=== PATIENT | female | born 1940 | race Caucasian/White ===

== ENCOUNTER → 2017-07-21 | Day surgery (SDC) | payer MEDICARE, OTHER ==
--- NOTE | 2017-07-15 13:57 | Diagnostic Imaging Report ---
PROCEDURE:CHEST 2 VIEWS TECHNIQUE:PA and lateral chest INDICATION:Preoperative evaluation for foot surgery COMPARISON:None. FINDINGS: The lungs are clear and symmetrically inflated. No pleural effusions. Normal heart size, mediastinal contour and pulmonary vasculature. Intact skeleton. Breast augmentation. CONCLUSION: No acute abnormality. Dictated by: Cyrus Carlos M.D. on 07/15/2017 at 14:05 Electronically approved by: Cyrus Carlos M.D. on 07/15/2017 at 14:05
[~2017-07-21] MED LIST: ABILIFY2 MG PO; ASPIR 8181 MG PO; BACITRACIN ZINC 15 GM OINT ONE; BUPIVACAINE HCL 0.5% INJ 30 ML VIAL INJ ONE; CEFAZOLIN SOD 2 GM/D5W 50ML 50 ML IV ONE; CRESTOR10 MG PO; DEXAMETHASONE SOD PHOS INJ 4 MG/ML VIAL ONE; FENTANYL CITRATE/PF 100MCG/2 ML INJ ONE; GLYCOPYRROLATE INJ 1MG/ 5 ML SYR ONE; LIDOCAINE HCL 2% LOCAL INJ 5 ML SDV VIAL INJ ONE; METHYLPHENIDATE10 MG PO; METOPROLOL TART25 MG PO; MIDAZOLAM HCL 2 MG/2 ML VIAL ONE; MUPIROCIN 2% OINT 22 GM TUBE ONE; NEOSTIGMINE 5 MG/5ML SYR ONE; ONDANSETRON HCL INJ 2 MG/ML VIAL ONE; PHENYLEPHRINE HCL 1% 10 MG/ML VIAL ONE; PROPOFOL IV EMULSION 10 MG/ML 20 ML VIAL ONE; ROCURONIUM BROMIDE 10 MG/ML 5ML VIAL ONE; SEVOFLURANE INHAL SOLN 250 ML PEN BTL ONE; SYNTHROID50 MCG PO; VENLAFAXINE HCL75 M1 PO; VIMPAT100 MG PO
--- NOTE | 2017-08-03 08:10 | Operative Report ---
DATE OF PROCEDURE: July 21, 2017 QA INTERN: None. POSTOPERATIVE DIAGNOSES 1. Right foot peroneus longus tendon rupture. 2. Right foot peroneus brevis tendon rupture. POSTOPERATIVE DIAGNOSES 1. Right foot peroneus longus tendon rupture. 2. Right foot peroneus brevis tendon rupture. PROCEDURES 1. Repair of peroneus longus tendon rupture with graft. 2. Repair of peroneus brevis tendon rupture with graft. 3. Application of human tissue allograft for soft-tissue reinforcement. 4. Application of posterior splint, right lower extremity. 5. Use of right tibial nerve block. HEMOSTASIS: Thigh tourniquet at 300 mmHg. INJECTABLES: 20 mL of 0.5% Marcaine plain and 1 mL of human tissue allograft for soft-tissue reinforcement. PROCEDURE: After informed consent was obtained, the patient was brought into the operating room and placed on the operating table in the supine position. General anesthesia was obtained. A pneumatic thigh tourniquet was applied to the right thigh. The right lower extremity was then scrubbed, prepped, and draped in the usual aseptic manner. The right lower extremity was then elevated for approximately 1 minute, and after exsanguinating utilizing the Esmarch bandage, the right thigh tourniquet was inflated to 300 mmHg. Attention was then directed to the lateral aspect of the right foot where a curvilinear incision was made along the course of the peroneal tendon from the base of the 5th metatarsal to just proximal to the tip of the lateral malleolus. The incision was deepened down utilizing sharp and blunt dissection technique. All vital structures were identified, retracted. ligated and cauterized as necessary. Next, the tendon sheath was incised and a lot of tenosynovitis and inflammatory drainage was noted. Next, the peroneus brevis tendon was inspected and it was noted to have significant amount of mucoid degeneration along the longitudinal rupture. All nonviable tendon tissue was resected and removed from the surgical site. The tendon was then debrided and re-entubulated utilizing a 4-0 Prolene. The tendon was then wrapped into its tendon sheath. The tendon sheath was then coapted utilizing 3-0 Vicryl. Attention was directed to the peroneus longus tendon, which the tendon sheath was incised longitudinally. Next, the tendon was inspected and noted to have significant mucoid degeneration along the longitudinal rupture. All pathological tissue was excised utilizing sharp and blunt dissection technique. All the ruptures were then thoroughly repaired utilizing a 4-0 Prolene in a re-entubulation process. Next, the tendon was wrapped in a tendon sheath. Next, the wound was irrigated with copious amounts of saline. Next, the tendon sheath was coapted utilizing 3-0 Vicryl. Next, the wound was coapted utilizing 4-0 Vicryl and 4-0 nylon. Next, the right surgical sites were injected with 10 mL of 0.5% Marcaine plain followed by right tibial nerve block consisting of 5 mL of 0.5% Marcaine plain. The right lower extremity was then placed in a dry sterile dressing consisting of Xeroform, 4 x 4's, Kerlix, and an Ramírez wrap. Patient was then placed into a posterior splint consisting of 4-inch and 6-inch Webril, 4 x 30 splint, and a 4-inch and a 6-inch Ramírez. Pneumatic thigh tourniquet was deflated and prompt response was noted to all digits of the right lower extremity. The patient tolerated the procedure and anesthesia well. Patient was transferred back to the recovery room with vital signs stable and neurovascular status intact to preop status. Job#: [id number]
== END | disposition home or self-care (01) ==
LOC: OR 10:23
PROVIDERS: ATTEND Podiatrist Foot & Ankle Surgery
DX: M66.371 Spontaneous rupture of flexor tendons, right ankle and foot (principal); M77.51 Other enthesopathy of right foot and ankle; M65.871 Other synovitis and tenosynovitis, right ankle and foot; R56.9 Unspecified convulsions; E03.9 Hypothyroidism, unspecified; I35.0 Nonrheumatic aortic (valve) stenosis; I47.1 Supraventricular tachycardia; I25.10 Atherosclerotic heart disease of native coronary artery without angina pectoris; E78.5 Hyperlipidemia, unspecified; K21.9 Gastro-esophageal reflux disease without esophagitis; R05 Cough; F32.9 Major depressive disorder, single episode, unspecified; F41.9 Anxiety disorder, unspecified; Z01.818 Encounter for other preprocedural examination; Z79.82 Long term (current) use of aspirin; Z87.01 Personal history of pneumonia (recurrent)
CPT/HCPCS: 28200 ×2; 71046; J2001; J2250; J2370; J2405; Q4131; J1100

== ENCOUNTER 2024-08-27 21:01 | Inpatient (IN) | payer MEDICARE, OTHER ==
[~2024-08-27] VITALS: Ht 154.9 cm; Wt 73.0 kg
[~2024-08-27 21:01] MED LIST changes: -BACITRACIN ZINC 15 GM OINT ONE; -BUPIVACAINE HCL 0.5% INJ 30 ML VIAL INJ ONE; -CEFAZOLIN SOD 2 GM/D5W 50ML 50 ML IV ONE; -DEXAMETHASONE SOD PHOS INJ 4 MG/ML VIAL ONE; -FENTANYL CITRATE/PF 100MCG/2 ML INJ ONE; -GLYCOPYRROLATE INJ 1MG/ 5 ML SYR ONE; -LIDOCAINE HCL 2% LOCAL INJ 5 ML SDV VIAL INJ ONE; -MIDAZOLAM HCL 2 MG/2 ML VIAL ONE; -MUPIROCIN 2% OINT 22 GM TUBE ONE; -NEOSTIGMINE 5 MG/5ML SYR ONE; -ONDANSETRON HCL INJ 2 MG/ML VIAL ONE; -PHENYLEPHRINE HCL 1% 10 MG/ML VIAL ONE; -PROPOFOL IV EMULSION 10 MG/ML 20 ML VIAL ONE; -ROCURONIUM BROMIDE 10 MG/ML 5ML VIAL ONE; -SEVOFLURANE INHAL SOLN 250 ML PEN BTL ONE
[2024-08-27 21:15] VITALS: PULSE 70; RESP 17; TEMP 98.9
[2024-08-27 22:44] LABS: BASOPHILS % 0.3 % (0.0-1.0); EOSINOPHILS # (AUTO) 0.1 (0.0-0.4); EOSINOPHILS % 1.1 % (0.0-6.0); HEMATOCRIT 36.6 % (34.2-44.1); LYMPHOCYTES # (AUTO) 1.3 (1.0-3.2); LYMPHOCYTES % 20.8 % (18.0-39.1); MEAN CORPUSCULAR HEMOGLOBIN 31.1 pg (28-32); MEAN CORPUSCULAR HGB CONC 32.8 g/dL (31-35); MEAN CORPUSCULAR VOLUME 94.8 fL (81-99); MONOCYTES # (AUTO) 0.6 (0.2-0.8); MONOCYTES % 9.3 % (4.4-11.3); NEUTROPHILS # (AUTO) 4.4 (2.1-6.9); PLATELET COUNT 292 x10e3/uL (140-360); RED BLOOD COUNT 3.86 x10e6/uL (3.6-5.1); RED CELL DISTRIBUTION WIDTH 13.9 % (11.7-14.4); WHITE BLOOD COUNT 6.44 x10e3/uL (4.8-10.8)
[2024-08-27 23:01] LABS: INFLUENZA A AG NEGATIVE (NEGATIVE); INFLUENZA B AG NEGATIVE (NEGATIVE)
[2024-08-27 23:02] LABS: CORONAVIRUS COVID-19 AG NEGATIVE (NEGATIVE)
[2024-08-27 23:05] LABS: ALANINE AMINOTRANSFERASE 36 IU/L (0-55); ALBUMIN 3.4 g/dL (3.5-5.0); ALKALINE PHOSPHATASE 117 IU/L (40-150); ANION GAP 18.5 mmol/L (8-16); BILIRUBIN,TOTAL 0.4 mg/dL (0.2-1.2); BLOOD UREA NITROGEN 26 mg/dL (7-26); BUN/CREATININE RATIO 35 (6-25); CALCIUM 8.7 mg/dL (8.4-10.2); CARBON DIOXIDE 29 mmol/L (22-29); CHLORIDE 100 mmol/L (98-107); CREATINE KINASE 38 IU/L (29-168); CREATININE, SERUM 0.74 mg/dL (0.57-1.11); EST GLOMERULAR FILTRATION RATE 81 ML/MIN (>=60); GLUCOSE 98 mg/dL (74-118); POTASSIUM 3.5 mmol/L (3.5-5.1); SODIUM 144 mmol/L (136-145); TOTAL PROTEIN 6.8 g/dL (6.5-8.1)
[2024-08-27 23:28] LABS: TROPONIN I < 0.001 ng/mL (0-0.300)
[2024-08-27] MEDS ORDERED: Morphine 4mg INJECTION 4 MG/ML INJ IV PRN (23:30)
[2024-08-28] VITALS (12 sets, daily range): BP systolic 105–134; BP diastolic 54–73; PULSE 85–98; RESP 16–21; TEMP 97.7–98.2; O2SAT 92–100
[2024-08-28] MEDS ORDERED: PEPCID AC10 MG PO (01:09)
[2024-08-28] MEDS ORDERED: RIVASTIGMINE1.5 MG PO (01:09)
[2024-08-28] MEDS ORDERED: POTASSIUM CHLO20 ME1 PO (01:09)
[2024-08-28] MEDS ORDERED: NUVIGIL250 MG PO (01:09)
[2024-08-28] MEDS ORDERED: FUROSEMIDE40 MG PO (01:09)
[2024-08-28] MEDS ORDERED: TRELEGY ELLIPT1 EACH INH (01:09)
[2024-08-28] MEDS ORDERED: VIMPAT150 MG PO (01:09)
[2024-08-28] MEDS ORDERED: ABILIFY5 MG PO (01:09)
[2024-08-28 05:08] LABS: BASOPHILS % 0.3 % (0.0-1.0); EOSINOPHILS # (AUTO) 0.1 (0.0-0.4); EOSINOPHILS % 1.6 % (0.0-6.0); HEMATOCRIT 34.6 % (34.2-44.1); HEMOGLOBIN 11.5 g/dL (12.0-16.0); LYMPHOCYTES # (AUTO) 1.4 (1.0-3.2); LYMPHOCYTES % 23.6 % (18.0-39.1); MEAN CORPUSCULAR HEMOGLOBIN 31.3 pg (28-32); MEAN CORPUSCULAR HGB CONC 33.2 g/dL (31-35); MONOCYTES # (AUTO) 0.6 (0.2-0.8); MONOCYTES % 9.2 % (4.4-11.3); NEUTROPHILS % 65.1 % (38.7-80.0); PLATELET COUNT 284 x10e3/uL (140-360); RED BLOOD COUNT 3.68 x10e6/uL (3.6-5.1); RED CELL DISTRIBUTION WIDTH 13.8 % (11.7-14.4); WHITE BLOOD COUNT 6.07 x10e3/uL (4.8-10.8)
[2024-08-28 05:27] LABS: CREATINE KINASE 33 IU/L (29-168)
[2024-08-28] MEDS: ONDANSETRON HCL INJ 2MG/ML 2ML 2 MG/ML VIAL IV PRN (05:36)
[2024-08-28 05:41] LABS: TROPONIN I < 0.001 ng/mL (0-0.300)
[2024-08-28 05:59] LABS: ALBUMIN 3.2 g/dL (3.5-5.0); ANION GAP 16.1 mmol/L (8-16); BILIRUBIN,TOTAL 0.4 mg/dL (0.2-1.2); CALCIUM 8.7 mg/dL (8.4-10.2); CREATININE, SERUM 0.68 mg/dL (0.57-1.11); TOTAL PROTEIN 6.4 g/dL (6.5-8.1)
[2024-08-28 06:05] LABS: POTASSIUM 3.1 mmol/L (3.5-5.1)
[2024-08-28 08:37] LABS: INR 0.93
[2024-08-28 08:38] LABS: PARTIAL THROMBOPLASTIN TIME 25.2 seconds (23.8-35.5)
[2024-08-28] MEDS ORDERED: POTASSIUM CHLORIDE 20 MEQ TAB CR PO ONE (10:30)
[2024-08-28] MEDS: SODIUM CHLORIDE 0.9% 250ML 250 ML ONE (12:19)
[2024-08-28] MEDS: Doxycycline IV 100 MG in SODIUM CHLORIDE 0.9% 100 ML IV SCH (12:34)
[2024-08-28] MEDS: METHYLPREDNISOLONE SOD SUCC 40 MG/ML VIAL 1ML IV ONE (12:35)
[2024-08-28] MEDS: POTASSIUM CHLORIDE 10MEQ EA PO ONE (13:05)
[2024-08-28 15:10] LABS: CREATINE KINASE 36 IU/L (29-168)
[2024-08-28 15:25] LABS: TROPONIN I < 0.001 ng/mL (0-0.300)
[2024-08-28] MEDS: ENOXAPARIN SOD INJ 40 MG/0.4 ML SYR SC SCH (17:04)
[2024-08-28] MEDS: ARIPIPRAZOLE 5 MG TABLET PO SCH (17:04)
[2024-08-28] MEDS: LACOSAMIDE 50 MG TABLET PO SCH (17:05)
[2024-08-28] MEDS: ALBUTEROL/IPRATROPIUM 3 ML NEB NEB PRN (19:36)
[2024-08-28] MEDS: FAMOTIDINE 20 MG TAB PO SCH (20:29)
[2024-08-28] MEDS: CRESTOR 10MG PO SCH (20:29)
[2024-08-28] MEDS ORDERED: SIMVASTATIN 40 MG TAB PO SCH (21:00)
[2024-08-29] VITALS (7 sets, daily range): BP systolic 117–150; BP diastolic 52–64; PULSE 78–104; RESP 18–20; TEMP 97.3–98.5; O2SAT 94–97
[2024-08-29 05:28] LABS: BASOPHILS % 0.3 % (0.0-1.0); EOSINOPHILS % 0.3 % (0.0-6.0); HEMATOCRIT 35.6 % (34.2-44.1); HEMOGLOBIN 11.5 g/dL (12.0-16.0); LYMPHOCYTES # (AUTO) 1.7 (1.0-3.2); LYMPHOCYTES % 28.9 % (18.0-39.1); MEAN CORPUSCULAR HEMOGLOBIN 30.9 pg (28-32); MEAN CORPUSCULAR HGB CONC 32.3 g/dL (31-35); MEAN CORPUSCULAR VOLUME 95.7 fL (81-99); MONOCYTES # (AUTO) 0.5 (0.2-0.8); MONOCYTES % 9.2 % (4.4-11.3); NEUTROPHILS # (AUTO) 3.6 (2.1-6.9); PLATELET COUNT 287 x10e3/uL (140-360); RED BLOOD COUNT 3.72 x10e6/uL (3.6-5.1); RED CELL DISTRIBUTION WIDTH 13.8 % (11.7-14.4); WHITE BLOOD COUNT 5.85 x10e3/uL (4.8-10.8)
[2024-08-29 06:02] LABS: ALBUMIN 3.2 g/dL (3.5-5.0); ANION GAP 15.6 mmol/L (8-16); BILIRUBIN,TOTAL 0.4 mg/dL (0.2-1.2); CALCIUM 8.3 mg/dL (8.4-10.2); CREATININE, SERUM 0.69 mg/dL (0.57-1.11); POTASSIUM 3.6 mmol/L (3.5-5.1); TOTAL PROTEIN 6.3 g/dL (6.5-8.1)
[2024-08-29] MEDS: LEVOTHYROXINE SODIUM 50 MCG TAB PO SCH (06:14)
[2024-08-29] MEDS ORDERED: NON-FORMULARY MEDICATION (Fluticasone/Umeclidin/Vilanter (Trelegy Ellipta 100-62.5-25) 1 I INH SCH (07:00)
[2024-08-29] MEDS: METOPROLOL TARTRATE 25 MG TAB PO SCH (09:43)
[2024-08-29] MEDS: VENLAFAXINE HCL 75 MG CAPCR PO SCH (09:43)
[2024-08-29] MEDS: RIVASTIGMINE TARTRATE 1.5 MG CAP PO SCH (09:44)
[2024-08-29] MEDS: ASPIRIN 81 MG CHEW TAB PO SCH (09:45)
[2024-08-29] MEDS: POTASSIUM CHLORIDE 20 MEQ TAB CR PO SCH (09:45)
[2024-08-29] MEDS: PANTOPRAZOLE SOD 40 MG TABEC PO SCH (09:48)
[2024-08-29] MEDS: FUROSEMIDE 40 MG TAB PO SCH (09:49)
[2024-08-29] MEDS ORDERED: AUGMENTIN 500-1 EACH PO (15:20)
[2024-08-29] MEDS ORDERED: MUCINEX DM ER1 EACH PO (15:20)
[2024-08-29] MEDS ORDERED: VENTOLIN HFA18 GM INH (15:20)
== END 2024-08-29 16:10 | disposition home or self-care (01) | DRG 202 ==
LOC: ER 21:14 → ERHOLD 23:22 → MED/SURG 08-28 00:17 → OBSVTOIN 08-29 12:23
PROVIDERS: ADMIT Internal Medicine; ATTEND Internal Medicine
DX: J45.901 Unspecified asthma with (acute) exacerbation (principal); I50.32 Chronic diastolic (congestive) heart failure; J90 Pleural effusion, not elsewhere classified; I11.0 Hypertensive heart disease with heart failure; R09.02 Hypoxemia; E87.6 Hypokalemia; R05.3 Chronic cough; I48.91 Unspecified atrial fibrillation; Z79.01 Long term (current) use of anticoagulants; K76.9 Liver disease, unspecified; G40.909 Epilepsy, unspecified, not intractable, without status epilepticus; K21.9 Gastro-esophageal reflux disease without esophagitis; E89.0 Postprocedural hypothyroidism; G47.419 Narcolepsy without cataplexy; F41.8 Other specified anxiety disorders; Z11.52 Encounter for screening for COVID-19; Z87.01 Personal history of pneumonia (recurrent); Z95.2 Presence of prosthetic heart valve; Z95.818 Presence of other cardiac implants and grafts; Z71.81 Spiritual or religious counseling; Z79.899 Other long term (current) drug therapy; Z79.82 Long term (current) use of aspirin
CPT/HCPCS: 36415; 71250; 76604; 80053; 82550; 83690; 83880; 84484; 85025; 85610; 85730; 93005; 93306; 94640; 94799; 99284; G0378; J1650; J2405; J2543; J2919; J7050